=== PATIENT | male | born 1965 | race Caucasian/White ===

== ENCOUNTER 2017-06-08 10:06 | Emergency (ER) | payer SELFPAY ==
[2017-06-08 10:09] VITALS: BP 169/102; PULSE 107; RESP 18; TEMP 98.8; O2SAT 100
--- NOTE | 2017-06-08 10:27 | PD ---
HPI Chief Complaint: Allergic/Adverse Reaction Time Seen by Provider: 10:21 Travel History International Travel<30 days: No Contact w/Intl Traveler<30days: No Traveled to known affect area: No History of Present Illness HPI has had intermittent swelling to lips in past, per patient he just got restarted on lisinopril again, and this morning developed swelling to lips and right cheek. deneis sob/fever/cough/rash.....no alleviating/aggravating factors PFSH Social History Tobacco Use: No Allergies-Medications (Allergen,Severity, Reaction): Coded Allergies: shellfish derived (Verified Allergy, Severe, 06/08/17) Uncoded Allergies: PCN (Allergy, Severe, 06/08/17) Reported Meds & Prescriptions Reported Meds & Active Scripts Active Norvasc (Amlodipine Besylate) 10 Mg Tab 10 Mg PO DAILY Amlodipine (Amlodipine Besylate) 5 Mg Tab 5 Mg PO DAILY Review of Systems Except as stated in HPI: all other systems reviewed are Neg General / Constitutional: No: Fever Eyes: No: Visual changes HENT: Positive: Other (lip swelling) Cardiovascular: No: Chest Pain or Discomfort Respiratory: No: Shortness of Breath Gastrointestinal: No: Abdominal Pain Genitourinary: No: Dysuria Musculoskeletal: No: Pain Skin: No Rash Neurologic: No: Weakness Psychiatric: No: Depression Endocrine: No: Polydipsia Hematologic/Lymphatic: No: Easy Bruising Physical Exam Narrative GENERAL: SKIN: Warm and dry. HEAD: Atraumatic. Normocephalic. EYES: Pupils equal and round. No scleral icterus. No injection or drainage. ENT: No nasal bleeding or discharge. Mucous membranes pink and moist....edema to right sided inferior lip/cheek, no stridor, no wheezing, no rash NECK: Trachea midline. No JVD. CARDIOVASCULAR: Regular rate and rhythm. RESPIRATORY: No accessory muscle use. Clear to auscultation. Breath sounds equal bilaterally. GASTROINTESTINAL: Abdomen soft, non-tender, nondistended. MUSCULOSKELETAL: Extremities without clubbing, cyanosis, or edema. No obvious deformities. NEUROLOGICAL: Awake and alert. No obvious cranial nerve deficits. Motor grossly within normal limits. Five out of 5 muscle strength in the arms and legs. Normal speech. PSYCHIATRIC: Appropriate mood and affect; insight and judgment normal. Data Data Last Documented VS Orders Orders Ecg Monitoring (06/08/17 10:22) Iv Access Insert/Monitor (06/08/17 10:22) Oximetry (06/08/17 10:22) Diphenhydramine Inj (Benadryl Inj) (06/08/17 10:30) Methylprednisolone So Succ Inj (Solumedr (06/08/17 10:30) Sodium Chloride 0.9% Flush (Ns Flush) (06/08/17 10:30) Epinephrine (1:1000) Inj (Adrenalin (1:1 (06/08/17 10:30) Famotidine Inj (Pepcid Inj) (06/08/17 10:45) Sodium Chloride 0.9% Flush (Ns Flush) (06/08/17 10:45) Amlodipine (Norvasc) (06/08/17 12:30) MDM Medical Decision Making Medical Screen Exam Complete: Yes Emergency Medical Condition: Yes Medical Record Reviewed: Yes Differential Diagnosis ALLERGIC RXN V ANGIOEDEMA Narrative Course RECENTLY RESTARTED ON LISINOPRIL AFTER A LONG TIME BEEN OFF, ALONG WITH COREG....WOKE UP WITH SWELLING TO LIPS....which responded well to treatment and has decreased swelling by end of observation...patinet will be d/c home. Diagnosis Primary Impression: angioedema Patient Instructions: Angioedema (ED), General Instructions Additional Instructions: PLEASE STOP TAKING LISINOPRIL AND COREG FOR BLOOD PRESSURE, INSTEAD START TAKING AMLODIPINE (GENERIC FOR NORVASC, FREE AT [facility]) DAILY....ESTABLISH WITH YOUR PRIMARY CARE FOR FURTHER CARE. Scripts Amlodipine (Amlodipine) 5 Mg Tab 5 MG PO DAILY for Blood Pressure Management, #30 TAB 0 Refills Prov: Shawn Maciel MD 06/08/17 Disposition: 01 DISCHARGE HOME Condition: Stable Shawn Maciel MD Jun 08, 2017 10:27
[2017-06-08] MEDS ORDERED: EPINEPHrine HCL (1:1000) 1 MG/ML VIAL IM ONE (10:30)
[2017-06-08] MEDS ORDERED: methylPREDNISolone SOD SUCC 125 MG/2 ML VIAL IV PUSH ONE (10:30)
[2017-06-08] MEDS ORDERED: SODIUM CHLORIDE 0.9% FLUSH 10 ML FLUSH IV FLUSH PRN ×2 (10:30→10:45)
[2017-06-08] MEDS ORDERED: diphenhydrAMINE HCL 50 MG/ML VIAL IVP ONE (10:30)
[2017-06-08] MEDS ORDERED: FAMOTIDINE 20 MG/2 ML VIAL IV PUSH ONE (10:45)
[2017-06-08 10:57] VITALS: PULSE 85; RESP 28; O2SAT 98
[2017-06-08] MEDS ORDERED: AMLO5TAB2 PO (11:29)
[2017-06-08] MEDS ORDERED: FAMO1TAB73 PO (11:36)
[2017-06-08] MEDS ORDERED: MEDR4PAK PO (11:36)
[2017-06-08] MEDS ORDERED: CLAR10CA3 PO (11:36)
[2017-06-08 12:16] VITALS: BP 152/87; PULSE 102; RESP 26; O2SAT 98
[2017-06-08 12:22] VITALS: BP 148/100; PULSE 98
[2017-06-08] MEDS ORDERED: amLODIPine BESYLATE 5 MG TAB PO ONE (12:30)
== END 2017-06-08 12:36 | disposition home or self-care (01) ==
LOC: NEPD 10:06
DX: T78.3XXA Angioneurotic edema, initial encounter (principal); Z91.013 Allergy to seafood
CPT/HCPCS: 96372; 96374; 96375; 99284; J0171; J1200; J2930

== ENCOUNTER 2017-06-12 12:38 | Emergency (ER) | payer SELFPAY ==
[~2017-06-12 12:38] MED LIST: AMLO5TAB2 PO; CLAR10CA3 PO; FAMO1TAB73 PO; MEDR4PAK PO
[2017-06-12 12:52] VITALS: BP 179/119; PULSE 103; RESP 18; TEMP 98.2; O2SAT 98
--- NOTE | 2017-06-12 14:09 | RADRPT ---
EXAM DATE/TIME: 06/12/2017 13:36 [facility] COMPARISON: No previous studies available for comparison. INDICATIONS : Chest pains with shortness of breath. MEDICAL HISTORY : None. SURGICAL HISTORY : None. ENCOUNTER: Initial ACUITY: 2 days PAIN SCORE: 3/10 LOCATION: Bilateral chest FINDINGS: PA and lateral views of the chest demonstrate the lungs to be symmetrically aerated without evidence of mass, infiltrate or effusion. The cardiomediastinal contours are unremarkable. Osseous structure s are intact. CONCLUSION: No acute disease. Malcolm Cason MD FACR on June 12, 2017 at 14:07 Board Certified Radiologist. This report was verified electronically.
[2017-06-12 15:25] LABS: INTERNATIONAL NORMALIZED RATIO 1.1 RATIO; PROTHROMBIN TIME - PATIENT 10.8 SEC (9.8-11.6)
[2017-06-12 15:34] VITALS: BP 170/111; PULSE 83; RESP 20; O2SAT 98
[2017-06-12 15:42] LABS: ALBUMIN 3.8 GM/DL (3.4-5.0); AST (GOT) 116 U/L (15-37); BICARBONATE 31.1 MEQ/L (21.0-32.0); BLOOD UREA NITROGEN 14 MG/DL (7-18); CALCIUM 8.6 MG/DL (8.5-10.1); CHLORIDE 106 MEQ/L (98-107); GLOMERULAR FILTRATION RATE 101 ML/MIN (>89); GLUCOSE,RANDOM 86 MG/DL (74-106); LIPASE 232 U/L (73-393); SODIUM (NA) 141 MEQ/L (136-145)
[2017-06-12 15:50] LABS: ALKALINE PHOSPHATASE 103 U/L (45-117); ALT (GPT) 175 U/L (12-78); TOTAL BILIRUBIN ADULT 0.4 MG/DL (0.2-1.0); TOTAL PROTEIN 8.4 GM/DL (6.4-8.2); TROPONIN I LESS THAN 0.02 NG/ML (0.02-0.05)
[2017-06-12 16:01] LABS: AUTOMATED NEUTROPHIL # 4.8 TH/MM3 (1.8-7.7); BASOPHIL # 0.1 TH/MM3 (0-0.2); BASOPHIL % 0.7 % (0.0-2.0); EOSINOPHIL # 0.3 TH/MM3 (0-0.4); EOSINOPHIL % 3.2 % (0.0-4.0); HEMATOCRIT 48.9 % (39.0-51.0); HEMOGLOBIN 16.6 GM/DL (13.0-17.0); LYMPH % 24.1 % (9.0-44.0); LYMPHOCYTE # 1.9 TH/MM3 (1.0-4.8); MEAN CELL VOLUME 96.8 FL (80.0-100.0); MEAN CORPUSCULAR HEMOGLOBIN 32.9 PG (27.0-34.0); MEAN CORPUSCULAR HGB CONC 33.9 % (32.0-36.0); MEAN PLATELET VOLUME 8.5 FL (7.0-11.0); MONO % 9.9 % (0.0-8.0); MONOCYTE # 0.8 TH/MM3 (0-0.9); NEUT % 62.1 % (16.0-70.0); PLATELET COUNT 231 TH/MM3 (150-450); RED BLOOD COUNT 5.05 MIL/MM3 (4.50-5.90); RED CELL DISTRIBUTION WIDTH 12.6 % (11.6-17.2); WHITE BLOOD COUNT 7.7 TH/MM3 (4.0-11.0)
--- NOTE | 2017-06-12 16:02 | PD ---
HPI Chief Complaint: Chest Pain Time Seen by Provider: 15:51 Travel History International Travel<30 days: No Contact w/Intl Traveler<30days: No Traveled to known affect area: No History of Present Illness HPI PATIENT STATES THAT SINCE CHANGE OF LISINOPRIL HIS SWELLING TO FACE HAS RESOLVED BUT NOW HE HAS NOTICED HIS BP HAS REMAINED ELEVATED IN 180/100 CONSISTENTLY AND EVEN HIGHER IF HE FEELS DIZZY OR WHILE WORKING. PATIENT IS SYMPTOM FREE, BUT STILL NOTICES ELEV BP STILL. PT DENIES BYRD/CP/ABDPAIN/BACKPAIN /.... PFSH Past Medical History Cerebrovascular Accident: Yes (TIA'S) Diminished Hearing: No Hypertension: Yes Influenza Vaccination: No Social History Alcohol Use: Yes (rare) Tobacco Use: No (2 months ago quit) Substance Use: No Allergies-Medications (Allergen,Severity, Reaction): Coded Allergies: shellfish derived (Verified Allergy, Severe, 06/08/17) Uncoded Allergies: PCN (Allergy, Severe, 06/08/17) Reported Meds & Prescriptions Reported Meds & Active Scripts Active Amlodipine (Amlodipine Besylate) 5 Mg Tab 5 Mg PO DAILY Review of Systems Except as stated in HPI: all other systems reviewed are Neg General / Constitutional: No: Fever Eyes: No: Visual changes HENT: No: Headaches Cardiovascular: No: Chest Pain or Discomfort Respiratory: No: Shortness of Breath Gastrointestinal: No: Abdominal Pain Genitourinary: No: Dysuria Musculoskeletal: No: Pain Skin: No Rash Neurologic: No: Weakness Psychiatric: No: Depression Endocrine: No: Polydipsia Hematologic/Lymphatic: No: Easy Bruising Physical Exam Narrative GENERAL: SKIN: Warm and dry. HEAD: Atraumatic. Normocephalic. EYES: Pupils equal and round. No scleral icterus. No injection or drainage. ENT: No nasal bleeding or discharge. Mucous membranes pink and moist. NECK: Trachea midline. No JVD. CARDIOVASCULAR: Regular rate and rhythm. RESPIRATORY: No accessory muscle use. Clear to auscultation. Breath sounds equal bilaterally. GASTROINTESTINAL: Abdomen soft, non-tender, nondistended. MUSCULOSKELETAL: Extremities without clubbing, cyanosis, or edema. No obvious deformities. NEUROLOGICAL: Awake and alert. No obvious cranial nerve deficits. Motor grossly within normal limits. Five out of 5 muscle strength in the arms and legs. Normal speech. PSYCHIATRIC: Appropriate mood and affect; insight and judgment normal. Data Data Last Documented VS Vital Signs Date Time Temp Pulse Resp B/P (MAP) Pulse Ox O2 Delivery O2 Flow Rate FiO2 06/12/17 16:44 160/104 (122) 06/12/17 15:34 83 20 98 Room Air 06/12/17 12:52 98.2 Orders Orders Electrocardiogram (06/12/17 13:03) Ckmb (Isoenzyme) Profile (06/12/17 13:03) Complete Blood Count With Diff (06/12/17 13:03) Comprehensive Metabolic Panel (06/12/17 13:03) Magnesium (Mg) (06/12/17 13:03) Prothrombin Time / Inr (Pt) (06/12/17 13:03) Act Partial Throm Time (Ptt) (06/12/17 13:03) Troponin I (06/12/17 13:03) Lipase (06/12/17 13:03) Chest, Pa & Lat (06/12/17 13:03) CKMB (06/12/17 14:42) CKMB% (06/12/17 14:42) Amlodipine (Norvasc) (06/12/17 16:00) Labs Laboratory Tests Test 06/12/17 14:42 White Blood Count 7.7 TH/MM3 Red Blood Count 5.05 MIL/MM3 Hemoglobin 16.6 GM/DL Hematocrit 48.9 % Mean Corpuscular Volume 96.8 FL Mean Corpuscular Hemoglobin 32.9 PG Mean Corpuscular Hemoglobin Concent 33.9 % Red Cell Distribution Width 12.6 % Platelet Count 231 TH/MM3 Mean Platelet Volume 8.5 FL Neutrophils (%) (Auto) 62.1 % Lymphocytes (%) (Auto) 24.1 % Monocytes (%) (Auto) 9.9 % Eosinophils (%) (Auto) 3.2 % Basophils (%) (Auto) 0.7 % Neutrophils # (Auto) 4.8 TH/MM3 Lymphocytes # (Auto) 1.9 TH/MM3 Monocytes # (Auto) 0.8 TH/MM3 Eosinophils # (Auto) 0.3 TH/MM3 Basophils # (Auto) 0.1 TH/MM3 CBC Comment DIFF FINAL Differential Comment Prothrombin Time 10.8 SEC Prothromb Time International Ratio 1.1 RATIO Activated Partial Thromboplast Time 23.6 SEC Blood Urea Nitrogen 14 MG/DL Creatinine 0.80 MG/DL Random Glucose 86 MG/DL Total Protein 8.4 GM/DL Albumin 3.8 GM/DL Calcium Level 8.6 MG/DL Magnesium Level 2.0 MG/DL Alkaline Phosphatase 103 U/L Aspartate Amino Transf (AST/SGOT) 116 U/L Alanine Aminotransferase (ALT/SGPT) 175 U/L Total Bilirubin 0.4 MG/DL Sodium Level 141 MEQ/L Potassium Level 4.1 MEQ/L Chloride Level 106 MEQ/L Carbon Dioxide Level 31.1 MEQ/L Anion Gap 4 MEQ/L Estimat Glomerular Filtration Rate 101 ML/MIN Total Creatine Kinase 128 U/L Creatine Kinase MB 0.9 NG/ML Troponin I LESS THAN 0.02 NG/ML Lipase 232 U/L [facility] Medical Decision Making Medical Screen Exam Complete: Yes Emergency Medical Condition: Yes Medical Record Reviewed: Yes Differential Diagnosis HTN UNCONTROLLED V ATYPICAL STEMI V DIZZY V ELECTROLYTE ABNL V ANEMIA Narrative Course PATIENT WAS JUST STARTED ON NORVASC, AND WAS STARTED ON LOW DOSE Diagnosis Primary Impression: UNCNTROLLED HYPERTENSION Referrals: [facility] FOR FURTHER BLOOD PRESSURE CONTROL Patient Instructions: General Instructions, Hypertension (ED) Scripts Amlodipine (Norvasc) 10 Mg Tab 10 MG PO DAILY for Blood Pressure Management, #30 TAB 0 Refills Prov: Shawn Maciel MD 06/12/17 Disposition: 01 DISCHARGE HOME Condition: Stable Shawn Maciel MD Jun 12, 2017 16:02
[2017-06-12 16:44] VITALS: BP 160/104
[2017-06-12] MEDS ORDERED: AMLO10 PO (16:47)
--- NOTE | 2017-06-13 14:02 | EKG ---
Date Performed: 06/12/2017 Time Performed: 14:41:30 PTAGE: 52 years EKG: Sinus rhythm NORMAL ECG NO PREVIOUS TRACING DOCTOR: Dashawn Serrato Interpretating Date/Time 06/13/2017 14:00:36
== END 2017-06-12 17:38 | disposition home or self-care (01) ==
LOC: NEPD 12:38
DX: I10 Essential (primary) hypertension (principal); Z86.73 Personal history of transient ischemic attack (TIA), and cerebral infarction without residual deficits; Z79.899 Other long term (current) drug therapy
CPT/HCPCS: 71046; 80053; 82550; 82552; 83690; 83735; 84484; 85025; 85610; 85730; 93005

== ENCOUNTER 2017-07-22 09:08 | Emergency (ER) | payer SELFPAY ==
[~2017-07-22] VITALS: Ht 188 cm; Wt 95.0 kg
[~2017-07-22 09:08] MED LIST changes: +AMLO10 PO; -CLAR10CA3 PO; -FAMO1TAB73 PO; -MEDR4PAK PO
[2017-07-22 09:10] VITALS: BP 176/104; PULSE 117; RESP 14; TEMP 98.2; O2SAT 98
[2017-07-22 09:50] VITALS: BP 147/104; PULSE 87; RESP 18; O2SAT 98
--- NOTE | 2017-07-22 09:50 | PD ---
HPI Chief Complaint: Allergic/Adverse Reaction Time Seen by Provider: 09:42 Travel History International Travel<30 days: No Contact w/Intl Traveler<30days: No Traveled to known affect area: No History of Present Illness HPI 52-year-old male with history of hypertension, presents the emergency Department with report of "swelling of this time and throat" after taking his clonidine this morning. Patient states he's had trouble in the past with multiple blood pressure medications including lisinopril, Coreg, and now clonidine. He was on amlodipine 10 mg daily until 2 weeks ago, but he stopped that after developing lower extremity edema. He is on his own without speaking to his primary care physician. Patient states his blood pressure is elevated, and he has chest tightness. He denies wheezing or shortness of breath. Patient also has allergies to penicillin and shellfish. PFSH Past Medical History Cardiovascular Problems: Yes (HTN) Cerebrovascular Accident: Yes (TIA'S) Diminished Hearing: No Hypertension: Yes Social History Alcohol Use: Yes (rare) Tobacco Use: No (2 months ago quit) Substance Use: No Allergies-Medications (Allergen,Severity, Reaction): Coded Allergies: shellfish derived (Verified Allergy, Severe, 06/08/17) lisinopril (Verified Adverse Reaction, Severe, ANGIOEDEMA, 07/22/17) Uncoded Allergies: PCN (Allergy, Severe, 06/08/17) Reported Meds & Prescriptions Reported Meds & Active Scripts Active Norvasc (Amlodipine Besylate) 10 Mg Tab 10 Mg PO DAILY Amlodipine (Amlodipine Besylate) 5 Mg Tab 5 Mg PO DAILY Review of Systems Except as stated in HPI: all other systems reviewed are Neg General / Constitutional: No: Fever Eyes: No: Visual changes HENT: Positive: Other, No: Headaches, Vertigo, Lightheadedness, Sore Throat, Rhinitis, Rhinorrhea, Congestion, Nosebleed, Neck Stiffness, Neck Pain (see history of present illness), Dental Difficulties, Earache Cardiovascular: No: Chest Pain or Discomfort Respiratory: No: Shortness of Breath Gastrointestinal: No: Abdominal Pain Genitourinary: No: Dysuria Musculoskeletal: No: Pain Skin: No Rash Neurologic: No: Weakness Psychiatric: No: Depression Endocrine: No: Polydipsia Hematologic/Lymphatic: No: Easy Bruising Physical Exam Narrative GENERAL: Patient appears in no obvious distress. He is mildly anxious. It is noted that his speech pattern changes depending on what you're talking about. He has a less than that he doesn't. SKIN: Warm and dry. Normal color. Normal turgor. No rash. HEAD: Atraumatic. Normocephalic. EYES: Pupils equal and round. No scleral icterus. No injection or drainage. ENT: No nasal bleeding or discharge. Mucous membranes pink and moist. TMs are clear bilaterally. Tongue does not appear significantly swollen. Lips appear normal. Pharynx is clear. Airway is patent. NECK: Trachea midline. Supple nontender. CARDIOVASCULAR: Regular rate and rhythm. No murmurs gallops or rubs appreciated. RESPIRATORY: No accessory muscle use. Clear to auscultation. Breath sounds equal bilaterally. GASTROINTESTINAL: Abdomen soft, non-tender, nondistended. Hepatic and splenic margins not palpable. MUSCULOSKELETAL: Extremities without clubbing, cyanosis, or edema. No obvious deformities. NEUROLOGICAL: Awake and alert. No obvious cranial nerve deficits. Motor grossly within normal limits. Five out of 5 muscle strength in the arms and legs. Normal speech. PSYCHIATRIC: Appropriate mood and affect; insight and judgment normal. Data Data Last Documented VS Vital Signs Date Time Temp Pulse Resp B/P (MAP) Pulse Ox O2 Delivery O2 Flow Rate FiO2 07/22/17 10:10 88 20 142/89 (106) 98 Room Air 07/22/17 09:10 98.2 Orders Orders Electrocardiogram (07/22/17 09:48) Basic Metabolic Panel (Bmp) (07/22/17 09:48) Ckmb (Isoenzyme) Profile (07/22/17 09:48) Complete Blood Count With Diff (07/22/17:48) Magnesium (Mg) (07/22/17 09:48) Prothrombin Time / Inr (Pt) (07/22/17 09:48) Act Partial Throm Time (Ptt) (07/22/17 09:48) Troponin I (07/22/17 09:48) Chest, Single Ap (07/22/17 09:48) Ecg Monitoring (07/22/17 09:48) Iv Access Insert/Monitor (07/22/17 09:48) Oximetry (07/22/17 09:48) Sodium Chloride 0.9% Flush (Ns Flush) (07/22/17 10:00) Sodium Chlorid 0.9% 500 Ml Inj (Ns 500 M (07/22/17 10:00) Hydralazine Inj (Apresoline Inj) (07/22/17 10:00) Diphenhydramine Inj (Benadryl Inj) (07/22/17 10:00) [facility] Medical Decision Making Medical Screen Exam Complete: Yes Emergency Medical Condition: Yes Medical Record Reviewed: Yes Differential Diagnosis Possible medication reaction. Essential hypertension. Anxiety. Narrative Course Patient is stable at time of exam. Labs ordered including CBC, CMP, cardiac panel. Chest x-ray is ordered as well as EKG. IV access is obtained patient is given 10 mg hydralazine IV, as well as 25 mg diphenhydramine IV. Patient is given 500 mL normal saline bolus. EKG shows normal sinus rhythm without any significant changes noted. Chest x-ray is negative for acute process per radiologist. Labs Patient is reassessed and his blood pressure improved to 143/89. Patient feels improved. Swelling is resolved. Patient will be discharged home on hydralazine 100 mg twice a day #60. Patient also started on hydrocodone thiazide 12.5 mg daily #30. Patient has clonidine which he can use intermittently as needed for high blood pressure spikes. Recommended no more amlodipine due to the edema it causes. Patient needs follow-up with local primary care physician which he states he is working on with insurance. Patient can return with any worsening symptoms as needed. Diagnosis Primary Impression: Adverse effects of medication Qualified Codes: T88.7XXA - Unspecified adverse effect of drug or medicament, initial encounter Additional Impression: Hypertension Qualified Codes: I10 - Essential (primary) hypertension Referrals: Primary Care Physician Patient Instructions: 2 Gram Sodium Diet (DC), General Instructions Additional Instructions: Patient is reassessed and his blood pressure improved to 143/89. Patient feels improved. Swelling is resolved. Patient will be discharged home on hydralazine 100 mg twice a day #60. Patient also started on hydrocodone thiazide 12.5 mg daily #30. Patient has clonidine which he can use intermittently as needed for high blood pressure spikes. Recommended no more amlodipine due to the edema it causes. Patient needs follow-up with local primary care physician which he states he is working on with insurance. Patient can return with any worsening symptoms as needed. Med/Other Pt SpecificInfo: Prescription(s) given Scripts Hydrochlorothiazide (Hydrochlorothiazide) 12.5 Mg Tab 12.5 MG PO DAILY, #30 TAB 0 Refills Prov: Alden Tang MD 07/22/17 Hydralazine (Hydralazine) 100 Mg Tab 100 MG PO BID for Blood Pressure Management for 30 Days, #60 TAB 0 Refills Take with meals Prov: Alden Tang MD 07/22/17 Disposition: 01 DISCHARGE HOME Condition: Stable Garrett Farrell Jul 22, 2017 09:50
[2017-07-22] MEDS ORDERED: SODIUM CHLORIDE 0.9% FLUSH 10 ML FLUSH IVF PRN (10:00)
[2017-07-22] MEDS ORDERED: hydrALAZINE HCL 20 MG/ML VIAL IV PUSH ONE (10:00)
[2017-07-22] MEDS ORDERED: SODIUM CHLORID 0.9% 500 ML INJ 500 ML IV ONE (10:00)
[2017-07-22] MEDS ORDERED: diphenhydrAMINE HCL 50 MG/ML VIAL IV PUSH ONE (10:00)
[2017-07-22 10:10] VITALS: BP 142/89; PULSE 88; RESP 20; O2SAT 98
--- NOTE | 2017-07-22 10:44 | RADRPT ---
EXAM DATE/TIME: 07/22/2017 10:13 [facility] COMPARISON: CHEST PA & LAT, June 12, 2017, 13:36. INDICATIONS : Chest tightness and shortness of breath for one day. MEDICAL HISTORY : Former smoker. SURGICAL HISTORY : None. ENCOUNTER: Initial ACUITY: 1 day PAIN SCORE: 0/10 LOCATION: Bilateral chest FINDINGS: A single view of the chest demonstrates the lungs to be symmetrically aerated without evidence of mas s, infiltrate or effusion. The cardiomediastinal contours are unremarkable. Osseous structures are intact. CONCLUSION: No acute disease. No significant change has occurred. Jonnathan Granda MD on July 22, 2017 at 10:42 Board Certified Radiologist. This report was verified electronically.
[2017-07-22] MEDS ORDERED: HYDR12.56 PO (10:55)
[2017-07-22] MEDS ORDERED: HYDR-3801 PO (10:55)
[2017-07-22 11:07] LABS: AUTOMATED NEUTROPHIL # 5.7 TH/MM3 (1.8-7.7); BASOPHIL # 0.1 TH/MM3 (0-0.2); BASOPHIL % 0.7 % (0.0-2.0); EOSINOPHIL # 0.2 TH/MM3 (0-0.4); EOSINOPHIL % 3.1 % (0.0-4.0); HEMATOCRIT 48.6 % (39.0-51.0); HEMOGLOBIN 17.1 GM/DL (13.0-17.0); LYMPHOCYTE # 1.3 TH/MM3 (1.0-4.8); MEAN CELL VOLUME 95.3 FL (80.0-100.0); MEAN CORPUSCULAR HEMOGLOBIN 33.4 PG (27.0-34.0); MEAN CORPUSCULAR HGB CONC 35.1 % (32.0-36.0); MEAN PLATELET VOLUME 8.4 FL (7.0-11.0); MONO % 8.7 % (0.0-8.0); MONOCYTE # 0.7 TH/MM3 (0-0.9); NEUT % 71.5 % (16.0-70.0); PLATELET COUNT 222 TH/MM3 (150-450); RED CELL DISTRIBUTION WIDTH 12.7 % (11.6-17.2); WHITE BLOOD COUNT 7.9 TH/MM3 (4.0-11.0)
[2017-07-22 11:16] LABS: INTERNATIONAL NORMALIZED RATIO 1.1 RATIO; PROTHROMBIN TIME - PATIENT 11.1 SEC (9.8-11.6)
[2017-07-22 11:55] LABS: BICARBONATE 27.1 MEQ/L (21.0-32.0); BLOOD UREA NITROGEN 14 MG/DL (7-18); CALCIUM 9.1 MG/DL (8.5-10.1); CHLORIDE 102 MEQ/L (98-107); CREATININE 0.83 MG/DL (0.60-1.30); GLOMERULAR FILTRATION RATE 97 ML/MIN (>89); GLUCOSE,RANDOM 108 MG/DL (74-106); MAGNESIUM 2.1 MG/DL (1.5-2.5); SODIUM (NA) 135 MEQ/L (136-145); TROPONIN I LESS THAN 0.02 NG/ML (0.02-0.05)
[2017-07-22 12:05] VITALS: BP 164/68
--- NOTE | 2017-07-22 14:28 | EKG ---
Date Performed: 07/22/2017 Time Performed: 10:20:10 PTAGE: 52 years EKG: Sinus rhythm NORMAL ECG Since PREVIOUS TRACING , no significant change noted PREVIOUS TRACIN06/12/2017 14.41 DOCTOR: Suman Jean Baptiste Interpretating Date/Time 07/22/2017 14:26:39
[2017-07-23] MEDS ORDERED: CLON0.1T PO (16:18)
[2017-07-23] MEDS ORDERED: DIPH25CA PO (16:37)
[2017-07-23] MEDS ORDERED: LORA-392 PO (18:01)
[2017-07-23] MEDS ORDERED: HYDR25TA5 PO (18:01)
== END 2017-07-22 12:20 | disposition home or self-care (01) ==
LOC: NEPD 09:08
DX: R22.1 Localized swelling, mass and lump, neck (principal); R07.89 Other chest pain; T50.905A Adverse effect of unspecified drugs, medicaments and biological substances, initial encounter; I10 Essential (primary) hypertension; Z86.73 Personal history of transient ischemic attack (TIA), and cerebral infarction without residual deficits; Z87.891 Personal history of nicotine dependence
CPT/HCPCS: 71045; 80048; 82550; 83735; 84484; 85025; 85610; 85730; 93005; 96361; 96374; 96375; 99285; J0360; J1200; J7040

== ENCOUNTER 2017-07-23 15:57 | Emergency (ER) | payer SELFPAY ==
[~2017-07-23] VITALS: Ht 188 cm; Wt 93.0 kg
[~2017-07-23 15:57] MED LIST changes: +HYDR-3801 PO; +HYDR12.56 PO
[2017-07-23 16:01] VITALS: BP 167/103; PULSE 125; RESP 20; TEMP 97.8; O2SAT 98
[2017-07-23] MEDS ORDERED: SODIUM CHLOR 0.9% 1000 ML INJ 1,000 ML IV SCH (16:16)
[2017-07-23 16:18] VITALS: BP 152/98; PULSE 100; PULSE 104; RESP 20; O2SAT 98
[2017-07-23] MEDS ORDERED: CLON0.1T PO (16:18)
[2017-07-23] MEDS ORDERED: SODIUM CHLORIDE 0.9% FLUSH 10 ML FLUSH IV FLUSH PRN (16:30)
[2017-07-23] MEDS ORDERED: diphenhydrAMINE HCL 50 MG/ML VIAL IVP ONE (16:30)
[2017-07-23] MEDS ORDERED: FAMOTIDINE 20 MG/2 ML VIAL IV PUSH ONE (16:30)
[2017-07-23] MEDS ORDERED: methylPREDNISolone SOD SUCC 125 MG/2 ML VIAL IV PUSH ONE (16:30)
[2017-07-23] MEDS ORDERED: DIPH25CA PO (16:37)
--- NOTE | 2017-07-23 16:39 | PD ---
HPI Chief Complaint: Chest Pain Time Seen by Provider: 16:05 Travel History International Travel<30 days: No Contact w/Intl Traveler<30days: No Traveled to known affect area: No History of Present Illness HPI 52-year-old male arrives complaining of allergies to antihypertensives. He was seen here yesterday with what he believes to have been anaphylaxis and her angioedema in response to blood pressure medications he does not know the name of the blood pressure medications. He states he was seen here in his throat felt full at the time and never really decreased to his normal size. He felt some chest pain earlier today. He felt paresthesias earlier today and arrives here with complaints as offered. Time resolved. Severity moderate. PFSH Past Medical History Arthritis: Yes Cardiovascular Problems: Yes (HTN) Cerebrovascular Accident: Yes (2014) Diminished Hearing: No Hypertension: Yes Influenza Vaccination: No Past Surgical History Oral Surgery: Yes Thoracic Surgery: Yes Social History Alcohol Use: Yes (rare) Tobacco Use: No Substance Use: No Allergies-Medications (Allergen,Severity, Reaction): Coded Allergies: shellfish derived (Verified Allergy, Severe, 07/23/17) Penicillins (Verified Allergy, Unknown, 07/23/17) lisinopril (Verified Adverse Reaction, Severe, ANGIOEDEMA, 07/23/17) Uncoded Allergies: PCN (Allergy, Severe, 06/08/17) Reported Meds & Prescriptions Reported Meds & Active Scripts Active Diphenhydramine (Diphenhydramine HCl) 25 Mg Cap 25 Mg PO Q12H PRN Hydrochlorothiazide 12.5 Mg Tab 12.5 Mg PO DAILY Hydralazine (Hydralazine HCl) 100 Mg Tab 100 Mg PO BID 30 Days Take with meals Norvasc (Amlodipine Besylate) 10 Mg Tab 10 Mg PO DAILY Amlodipine (Amlodipine Besylate) 5 Mg Tab 5 Mg PO DAILY Reported Clonidine (Clonidine HCl) 0.1 Mg Tab 0.1 Mg PO BID Review of Systems Except as stated in HPI: all other systems reviewed are Neg General / Constitutional: No: Fever Physical Exam Narrative GENERAL: 52-year-old male well-nourished well-developed mildly anxious, watching TV Vital Signs Date Time Temp Pulse Resp B/P (MAP) Pulse Ox O2 Delivery O2 Flow Rate FiO2 07/23/17 16:18 100 20 152/98 (116) 98 Room Air 07/23/17 16:18 104 20 152/98 (116) 98 Room Air 07/23/17 16:08 20 Room Air 07/23/17 16:01 97.8 125 20 167/103 (124) 98 SKIN: Warm and dry. HEAD: Atraumatic. Normocephalic. EYES: Pupils equal and round. No scleral icterus. No injection or drainage. ENT: No nasal bleeding or discharge. Mucous membranes pink and moist. Posterior oropharynx is widely patent. NECK: Trachea midline. No JVD. CARDIOVASCULAR: Tachycardia. Regular rhythm. RESPIRATORY: The lungs are clear. No tachypnea. GASTROINTESTINAL: Abdomen soft, non-tender, nondistended. Hepatic and splenic margins not palpable. MUSCULOSKELETAL: Extremities without clubbing, cyanosis, or edema. No obvious deformities. NEUROLOGICAL: Awake and alert. No obvious cranial nerve deficits. Motor grossly within normal limits. Five out of 5 muscle strength in the arms and legs. Normal speech. PSYCHIATRIC: Appropriate mood and affect; insight and judgment normal. Data Data Last Documented VS Vital Signs Date Time Temp Pulse Resp B/P (MAP) Pulse Ox O2 Delivery O2 Flow Rate FiO2 07/23/17 16:18 100 20 152/98 (116) 98 Room Air 07/23/17 16:01 97.8 Orders Orders Electrocardiogram (07/23/17 ) Ecg Monitoring (07/23/17 16:16) Iv Access Insert/Monitor (07/23/17 16:16) Oximetry (07/23/17 16:16) Diphenhydramine Inj (Benadryl Inj) (07/23/17 16:30) Methylprednisolone So Succ Inj (Solumedr (07/23/17 16:30) Famotidine Inj (Pepcid Inj) (07/23/17 16:30) Sodium Chlor 0.9% 1000 Ml Inj (Ns 1000 M (07/23/17 16:16) Sodium Chloride 0.9% Flush (Ns Flush) (07/23/17 16:30) Lorazepam Inj (Ativan Inj) (07/23/17 17:00) [facility]DM Medical Decision Making Medical Screen Exam Complete: Yes Emergency Medical Condition: Yes Medical Record Reviewed: Yes Differential Diagnosis NSTEMI, unstable angina, coronary vasospasm, PE, PTX, aortic dissection, pericarditis, myocarditis, endocarditis, PNA, esophageal disease, aneurysm, musculoskeletal etiologies, anxiety, cocaine/sympathomimetic abuse Narrative Course Time of reassessment, 545 spent 15 minutes talking over the patient's allergies and blood pressure medications. Turns out he is suffering with severe anxiety due to the divorce after 20 years of marriage and his son, a electrical sign servicer in [place] suffering life-threatening injury. We talked about anxiety management interventions for home as well as other blood pressure interventions and the use of Ativan with great caution. Return precautions discussed with the patient states he is going to see primary provider soon Diagnosis Primary Impression: Adverse reaction to drug Qualified Codes: T88.7XXD - Unspecified adverse effect of drug or medicament, subsequent encounter Additional Impressions: Anxiety Insomnia Qualified Codes: G47.00 - Insomnia, unspecified Referrals: Primary Care Physician 2 days Med/Other Pt SpecificInfo: Prescription(s) given Scripts Hydrochlorothiazide (Hydrochlorothiazide) 25 Mg Tab 25 MG PO HS, #30 TAB 0 Refills Prov: Fernando Pena MD 07/23/17 Lorazepam (Ativan) 0.5 Mg Tab 0.5 MG PO HS Y for INSOMNIA, #20 TAB 0 Refills Prov: Fernando Pena MD 07/23/17 Diphenhydramine (Diphenhydramine) 25 Mg Cap 25 MG PO Q12H Y for ALLERGIES, #10 CAP 0 Refills Prov: Fernando Pena MD 07/23/17 Disposition: 01 DISCHARGE HOME Condition: Stable Fernando Pena MD Jul 23, 2017 16:39
[2017-07-23] MEDS ORDERED: LORazepam 2 MG/ML VIAL IV PUSH ONE (17:00)
[2017-07-23] MEDS ORDERED: LORA-392 PO (18:01)
[2017-07-23] MEDS ORDERED: HYDR25TA5 PO (18:01)
[2017-07-23 18:30] VITALS: BP 175/97
--- NOTE | 2017-07-24 23:06 | EKG ---
Date Performed: 07/23/2017 Time Performed: 16:09:27 PTAGE: 52 years EKG: SINUS TACHYCARDIA ABNORMAL RHYTHM ECG NO PREVIOUS TRACING DOCTOR: Gris Rangel Interpretating Date/Time 07/24/2017 22:57:28
== END 2017-07-23 18:20 | disposition home or self-care (01) ==
LOC: NEPC 15:57
DX: F41.9 Anxiety disorder, unspecified (principal); G47.00 Insomnia, unspecified; I10 Essential (primary) hypertension
CPT/HCPCS: 93005; 96361; 96374; 96375; 99284; J1200; J2060; J2930; J7030

== ENCOUNTER 2017-07-26 12:32 | Observation (INO) | payer SELFPAY ==
[~2017-07-26 12:32] MED LIST changes: +CLON0.1T PO; +DIPH25CA PO; +HYDR25TA5 PO; +LORA-392 PO
[2017-07-26 12:48] VITALS: BP 158/70; PULSE 70; RESP 18; TEMP 98.9; O2SAT 99
[2017-07-26 13:07] LABS: BASOPHIL # 0.1 TH/MM3 (0-0.2); BASOPHIL % 0.7 % (0.0-2.0); EOSINOPHIL # 0.2 TH/MM3 (0-0.4); EOSINOPHIL % 1.8 % (0.0-4.0); HEMATOCRIT 46.9 % (39.0-51.0); HEMOGLOBIN 16.4 GM/DL (13.0-17.0); LYMPH % 18.8 % (9.0-44.0); LYMPHOCYTE # 1.8 TH/MM3 (1.0-4.8); MEAN CELL VOLUME 96.9 FL (80.0-100.0); MEAN CORPUSCULAR HEMOGLOBIN 33.8 PG (27.0-34.0); MEAN CORPUSCULAR HGB CONC 34.9 % (32.0-36.0); MONO % 14.6 % (0.0-8.0); MONOCYTE # 1.4 TH/MM3 (0-0.9); NEUT % 64.1 % (16.0-70.0); PLATELET COUNT 223 TH/MM3 (150-450); RED BLOOD COUNT 4.84 MIL/MM3 (4.50-5.90); RED CELL DISTRIBUTION WIDTH 12.9 % (11.6-17.2); WHITE BLOOD COUNT 9.3 TH/MM3 (4.0-11.0)
[2017-07-26 13:26] LABS: ALKALINE PHOSPHATASE 89 U/L (45-117); TOTAL BILIRUBIN ADULT 0.6 MG/DL (0.2-1.0); TOTAL PROTEIN 7.8 GM/DL (6.4-8.2)
[2017-07-26 13:28] LABS: ALBUMIN 3.3 GM/DL (3.4-5.0); ALT (GPT) 124 U/L (12-78); AST (GOT) 98 U/L (15-37); BICARBONATE 24.2 MEQ/L (21.0-32.0); BLOOD UREA NITROGEN 12 MG/DL (7-18); CALCIUM 8.6 MG/DL (8.5-10.1); CHLORIDE 103 MEQ/L (98-107); CREATININE 0.79 MG/DL (0.60-1.30); GLOMERULAR FILTRATION RATE 102 ML/MIN (>89); GLUCOSE,RANDOM 95 MG/DL (74-106); SODIUM (NA) 135 MEQ/L (136-145)
[2017-07-26] MEDS ORDERED: MORPHINE SULFATE 2 MG/ML INJ IV PUSH ONE (13:45)
[2017-07-26] MEDS ORDERED: ONDANSETRON HCL 4 MG/2 ML VIAL IV PUSH ONE (13:45)
--- NOTE | 2017-07-26 13:48 | PD ---
HPI Chief Complaint: General Weakness Time Seen by Provider: 13:26 Travel History International Travel<30 days: No Contact w/Intl Traveler<30days: No Traveled to known affect area: No History of Present Illness HPI 52-year-old male that presents to the ED for evaluation of weakness as well as headache and chest pressure. Per patient his been here multiple times for blood pressure issues. Per patient his blood pressure has been okay and has had no issues until today when he woke up he started having a headache to his left side of his head as well as tremors and pain to his left neck. Per patient he has a history of stroke in the past. He denies any numbness, tingling, weakness but states having weakness sensation throughout the entire body. Per patient she feels nauseous. He states having some chest pressure that he's never had before. Denies any heart history. He states that his been battling with hypertension for some time. He has not been able to follow with a primary care doctor. He has been here 4 times in the past for blood pressure related events and last time he was found to be more anxious than having blood pressure issues. His blood pressure medication has been changed at least 3 times here in the ED secondary to possible allergic reactions to the medications. He states compliant with his medications here. pain per patients is mostly to the head and is pressure like 7/10. PFSH Past Medical History Arthritis: Yes Cardiovascular Problems: Yes (HTN) Cerebrovascular Accident: Yes (2014) Diminished Hearing: No Hypertension: Yes ?: Not Past Surgical History Oral Surgery: Yes Thoracic Surgery: Yes Social History Alcohol Use: Yes (rare) Tobacco Use: No Substance Use: No Allergies-Medications (Allergen,Severity, Reaction): Coded Allergies: shellfish derived (Verified Allergy, Severe, 07/26/17) Penicillins (Verified Allergy, Unknown, 07/26/17) lisinopril (Verified Adverse Reaction, Severe, ANGIOEDEMA, 07/26/17) Uncoded Allergies: PCN (Allergy, Severe, 06/08/17) Reported Meds & Prescriptions Reported Meds & Active Scripts Active Ativan (Lorazepam) 0.5 Mg Tab 0.5 Mg PO HS PRN Reported Hydralazine (Hydralazine HCl) 100 Mg Tab 100 Mg PO BID Take with meals Review of Systems Except as stated in HPI: all other systems reviewed are Neg Physical Exam Narrative GENERAL: SKIN: Warm and dry. HEAD: Atraumatic. Normocephalic. EYES: Pupils equal and round. No scleral icterus. No injection or drainage. ENT: No nasal bleeding or discharge. Mucous membranes pink and moist. Tongue is midline. No uvula deviation. NECK: Trachea midline. No JVD. CARDIOVASCULAR: Regular rate and rhythm. No murmurs, S3, S4. RESPIRATORY: No accessory muscle use. Clear to auscultation. Breath sounds equal bilaterally. GASTROINTESTINAL: Abdomen soft, non-tender, nondistended. Hepatic and splenic margins not palpable. MUSCULOSKELETAL: Extremities without clubbing, cyanosis, or edema. No obvious deformities. Full range of motion of the upper and lower extremities bilaterally. 2+ pulses bilaterally. NEUROLOGICAL: Awake and alert. No obvious cranial nerve deficits. Motor grossly within normal limits. Five out of 5 muscle strength in the arms and legs. Normal speech. PSYCHIATRIC: Appropriate mood and affect; insight and judgment normal. Data Data Last Documented VS Vital Signs Date Time Temp Pulse Resp B/P (MAP) Pulse Ox O2 Delivery O2 Flow Rate FiO2 07/26/17 12:48 98.9 70 18 158/70 (99) 99 Orders Orders Complete Blood Count With Diff (07/26/17 12:47) Comprehensive Metabolic Panel (07/26/17 12:47) Urinalysis - C+S If Indicated (07/26/17 12:47) Electrocardiogram (07/26/17 13:41) Ckmb (Isoenzyme) Profile (07/26/17 13:41) Troponin I (07/26/17 13:41) Prothrombin Time / Inr (Pt) (07/26/17 13:41) Act Partial Throm Time (Ptt) (07/26/17 13:41) Magnesium (Mg) (07/26/17 13:41) Chest, Single Ap (07/26/17 13:41) Ct Brain W/O Iv Contrast(Rout) (07/26/17 13:41) Ct Cerv Spine W/O Contrast (07/26/17 ) Morphine Inj (Morphine Inj) (07/26/17 13:45) Ondansetron Inj (Zofran Inj) (07/26/17 13:45) Aspirin (Aspirin) (07/26/17 14:00) Labs Laboratory Tests Test 07/26/17 12:48 White Blood Count 9.3 TH/MM3 Red Blood Count 4.84 MIL/MM3 Hemoglobin 16.4 GM/DL Hematocrit 46.9 % Mean Corpuscular Volume 96.9 FL Mean Corpuscular Hemoglobin 33.8 PG Mean Corpuscular Hemoglobin Concent 34.9 % Red Cell Distribution Width 12.9 % Platelet Count 223 TH/MM3 Mean Platelet Volume 8.0 FL Neutrophils (%) (Auto) 64.1 % Lymphocytes (%) (Auto) 18.8 % Monocytes (%) (Auto) 14.6 % Eosinophils (%) (Auto) 1.8 % Basophils (%) (Auto) 0.7 % Neutrophils # (Auto) 6.0 TH/MM3 Lymphocytes # (Auto) 1.8 TH/MM3 Monocytes # (Auto) 1.4 TH/MM3 Eosinophils # (Auto) 0.2 TH/MM3 Basophils # (Auto) 0.1 TH/MM3 CBC Comment DIFF FINAL Differential Comment Blood Urea Nitrogen 12 MG/DL Creatinine 0.79 MG/DL Random Glucose 95 MG/DL Total Protein 7.8 GM/DL Albumin 3.3 GM/DL Calcium Level 8.6 MG/DL Alkaline Phosphatase 89 U/L Aspartate Amino Transf (AST/SGOT) 98 U/L Alanine Aminotransferase (ALT/SGPT) 124 U/L Total Bilirubin 0.6 MG/DL Sodium Level 135 MEQ/L Potassium Level 3.9 MEQ/L Chloride Level 103 MEQ/L Carbon Dioxide Level 24.2 MEQ/L Anion Gap 8 MEQ/L Estimat Glomerular Filtration Rate 102 ML/MIN MDM Medical Decision Making Medical Screen Exam Complete: Yes Emergency Medical Condition: Yes Medical Record Reviewed: Yes Differential Diagnosis Chest pain versus a typical chest pain versus anxiety versus CVA versus ACS versus lymphadenopathy versus hypertension versus normal exam versus cold-like symptoms Narrative Course 52-year-old male that presents to the ED for evaluation of chest discomfort as well as headache. Patient was properly examined and was found to have signs and symptoms of unclear etiology at this time. He does have risk factors for ACS and CVA although this appears to be less likely for CVA. Patient was given aspirin pain medication here as well as labs were ordered. Case will be signed out to incoming provider pending disposition and plan. Darius Chan Jul 26, 2017 13:48
[2017-07-26] MEDS ORDERED: ASPIRIN 325 MG TAB PO ONE (14:00)
--- NOTE | 2017-07-26 14:07 | RADRPT ---
EXAM DATE/TIME: 07/26/2017 13:57 [facility] COMPARISON: No previous studies available for comparison. INDICATIONS : Weakness RADIATION DOSE: 36.92 CTDIvol (mGy) MEDICAL HISTORY : Cerebrovascular disease. Hypertension. SURGICAL HISTORY : None. ENCOUNTER: Initial ACUITY: 1 day PAIN SCALE: 2/10 LOCATION: cranial TECHNIQUE: Multiple contiguous axial images were obtained of the head. Using automated exposure control and adj ustment of the mA and/or kV according to patient size, radiation dose was kept as low as reasonably a chievable to obtain optimal diagnostic quality images. DICOM format image data is available electro nically for review and comparison. FINDINGS: CEREBRUM: The ventricles are normal for age. No evidence of midline shift, mass lesion, hemorrhage or acute in farction. No extra-axial fluid collections are seen. POSTERIOR FOSSA: The cerebellum and brainstem are intact. The 4th ventricle is midline. The cerebellopontine angle i s unremarkable. EXTRACRANIAL: The visualized portion of the orbits is intact. SKULL: The calvaria is intact. No evidence of skull fracture. CONCLUSION: 1. Negative noncontrast CT brain. Jassi Abrams MD on July 26, 2017 at 14:04 Board Certified Radiologist. This report was verified electronically.
[2017-07-26] MEDS ORDERED: HYDR-3801 PO (14:45)
--- NOTE | 2017-07-26 14:56 | RADRPT ---
EXAM DATE/TIME: 07/26/2017 14:17 [facility] COMPARISON: CHEST SINGLE AP, July 22, 2017, 10:13. INDICATIONS : Chest pain. MEDICAL HISTORY : high blood pressure, TIA, mini stroke SURGICAL HISTORY : None. ENCOUNTER: Initial ACUITY: 1 day PAIN SCORE: 8/10 LOCATION: Bilateral chest FINDINGS: A single view of the chest demonstrates the lungs to be symmetrically aerated without evidence of mas s, infiltrate or effusion. The cardiomediastinal contours are unremarkable. Osseous structures are intact. CONCLUSION: No acute disease. Jaguar Sommer MD on July 26, 2017 at 14:51 Board Certified Radiologist. This report was verified electronically.
--- NOTE | 2017-07-26 15:02 | RADRPT ---
EXAM DATE/TIME: 07/26/2017 13:57 [facility] COMPARISON: No previous studies available for comparison. INDICATIONS : General weekness, tremors RADIATION DOSE: 22.91 CTDIvol (mGy) MEDICAL HISTORY : Cerebrovascular disease. Hypertension. SURGICAL HISTORY : None. ENCOUNTER: Initial ACUITY: 1 day PAIN SCALE: 2/10 LOCATION: neck TECHNIQUE: Volumetric scanning of the cervical spine was performed. Multiplanar reconstructions in the sagittal, coronal and oblique axial planes were performed. Using automated exposure control and adjustment o f the mA and/or kV according to patient size, radiation dose was kept as low as reasonably achievable to obtain optimal diagnostic quality images. DICOM format image data is available electronically f or review and comparison. FINDINGS: There is normal alignment of the vertebral bodies of the cervical spine preservation of vertebral bod y height. Moderate severity discogenic degenerative changes are present at C5-6 and C6-7 with inters pace narrowing and moderately prominent osteophytes both anterior and posterior. The posterior eleme nts are in normal alignment without evidence of locked or perched facets. The atlantoaxial articulat ion is intact. The spinous processes are intact. C2-C3: No fracture seen. The neural foramina are patent. C3-C4: No fracture seen. The neural foramina are patent. C4-C5: No fracture seen. The neural foramina are patent. C5-C6: No fracture seen. Bilateral bony neural foraminal stenosis, left greater than right. C6-C7: No fracture seen. The neural foramina are patent. C7-T1: No fracture seen. The neural foramina are patent. CONCLUSION: No evidence of compression deformity or spondylolisthesis. Jassi Abrams MD on July 26, 2017 at 14:58 Board Certified Radiologist. This report was verified electronically.
[2017-07-26] MEDS ORDERED: NITROGLYCERIN 0.4 MG SL 25 TABS/BTL SL ONE (15:30)
[2017-07-26] MEDS ORDERED: HYDROmorphone HCL PF 2 MG/ML VIAL IV PUSH ONE (16:00)
[2017-07-26 16:31] LABS: MAGNESIUM 2.2 MG/DL (1.5-2.5)
[2017-07-26 16:32] LABS: TROPONIN I LESS THAN 0.02 NG/ML (0.02-0.05)
[2017-07-26 16:42] LABS: INTERNATIONAL NORMALIZED RATIO 1.1 RATIO; PROTHROMBIN TIME - PATIENT 10.8 SEC (9.8-11.6)
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
[2017-07-26] MEDS ORDERED: SODIUM CHLORIDE 0.9% FLUSH 10 ML FLUSH IV FLUSH PRN (17:15)
[2017-07-26 17:50] VITALS: BP 147/97; PULSE 74; RESP 20; TEMP 97.4; O2SAT 98
[2017-07-26 18:23] LABS: TROPONIN I LESS THAN 0.02 NG/ML (0.02-0.05)
[2017-07-26] MEDS: HYDROmorphone HCL PF 2 MG/ML VIAL IV PUSH PRN ×2 (18:47→23:20)
[2017-07-26 20:15] VITALS: O2SAT 98
[2017-07-26 20:51] VITALS: BP 136/83; PULSE 77; RESP 18; TEMP 98.1; O2SAT 98
[2017-07-26 20:55] VITALS: PULSE 82
[2017-07-26] MEDS: SODIUM CHLORIDE 0.9% FLUSH 10 ML FLUSH IV FLUSH SCH (21:00)
[2017-07-26 21:37] LABS: TROPONIN I LESS THAN 0.02 NG/ML (0.02-0.05)
[2017-07-26 23:04] VITALS: PULSE 73
[2017-07-27 00:20] VITALS: BP 151/82; PULSE 72; RESP 18; O2SAT 94
[2017-07-27 03:03] VITALS: BP 143/93; PULSE 71; RESP 18; TEMP 98; O2SAT 96
[2017-07-27] MEDS: HYDROmorphone HCL PF 2 MG/ML VIAL IV PUSH PRN (03:46)
[2017-07-27 03:59] VITALS: PULSE 81
[2017-07-27 07:00] VITALS: PULSE 65
[2017-07-27 07:56] VITALS: BP 141/89; PULSE 70; RESP 20; TEMP 97.6; O2SAT 95
--- NOTE | 2017-07-27 08:08 | EKG ---
Date Performed: 07/26/2017 Time Performed: 20:40:58 PTAGE: 52 years EKG: Sinus rhythm WITH SINUS ARRHYTHMIA SEPTAL MYOCARDIAL INFARCTION ABNORMAL ECG PREVIOUS TRACING : 07/26/2017 18.10 Since the prior tracing, there has been no significant knutson DOCTOR: Elisa Page Interpretating Date/Time 07/28/2017 07:18:39
--- NOTE | 2017-07-27 08:08 | EKG ---
Date Performed: 07/26/2017 Time Performed: 14:32:16 PTAGE: 52 years EKG: SINUS TACHYCARDIA ABNORMAL RHYTHM ECG PREVIOUS TRACING : 07/23/2017 16.09 Since the prior tracing, there has been no significant knutson DOCTOR: Elisa Page Interpretating Date/Time 07/27/2017 08:06:05
--- NOTE | 2017-07-27 08:08 | EKG ---
Date Performed: 07/26/2017 Time Performed: 18:10:25 PTAGE: 52 years EKG: Sinus rhythm SEPTAL MYOCARDIAL INFARCTION ABNORMAL ECG PREVIOUS TRACING : 07/26/2017 14.32 Since the prior tracing, there has been no significant knutson DOCTOR: Elisa Page Interpretating Date/Time 07/27/2017 08:06:15
[2017-07-27] MEDS ORDERED: hydrALAZINE HCL 100 MG TAB PO SCH (09:00)
[2017-07-27] MEDS ORDERED: LORazepam 0.5 MG TAB PO ONE (09:45)
[2017-07-27] MEDS: SODIUM CHLORIDE 0.9% FLUSH 10 ML FLUSH IV FLUSH SCH (09:59)
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
--- NOTE | 2017-07-27 10:23 | HHI.HP ---
HPI Primary Care Physician No Primary Care Physician Chief Complaint Chest pain History of Present Illness This is a 52-year-old male that presents to ED via the back from work with complaint of chest discomfort, shortness of breath, generalized weakness, and generalized tingling. Initially thought of as new symptoms but under further discussion, patient has had these symptoms for months and has been seen at [facility] for the same symptoms. He was placed on blood pressure medicine at that time but states he had allergic reaction to the lisinopril. States that he has continued to have issues with his blood pressure medications. He cannot take the Catapres, states amlodipine caused edema in his legs. He is still taking hydralazine and seems to think that there are no issues with it but his blood pressures are still high. He describes a intermittent discomfort in his chest that happens almost every day when it occurs it lasts all day long. He can become short of breath with it. He states he becomes very weak with it. Yesterday the same thing occurred, states he sat on the couch and afterwards was too weak to move. States he has had a cardiac evaluation, states he had a stress test a couple months ago at [facility] however he does not know the results. States he has not had a cardiac catheterization. Does not follow up with PCP, states he has no insurance. Recently moved to this area from [place]. Also patient has been under a lot of stress. His son-in-law while in the . His son is in the hospital after having an injury in [place] but is about to be discharged where he can go home in [place]. He is also trying to work things out with his , currently . Review of Systems General: Patient denies fevers, chills recent, and recent travel HEENT: Patient denies headache, sore throat, difficulty swallowing. Cardiovascular: Has the chest discomfort as mentioned above. Denies sensation of heart beating rapidly or irregularly. No syncope. Denies diaphoresis. Respiratory: Intermittent shortness of breath. Denies inspirational chest discomfort. Denies coughing wheezing or hemoptysis. GI: Patient denies nausea, vomiting, diarrhea, abdominal pain, bloody stools. Musculoskeletal: Patient denies joint pain or edema. Denies calf pain or edema. Neurovascular: Complains of generalized tingling and weakness when he has the symptoms. Endocrine: Denies polyuria and polydipsia. Hematologic: Denies easy bruising. Skin: Denies rash or itching. Past Family Social History Allergies: Coded Allergies: shellfish derived (Verified Allergy, Severe, 07/26/17) Penicillins (Verified Allergy, Unknown, 07/26/17) lisinopril (Verified Adverse Reaction, Severe, ANGIOEDEMA, 07/26/17) Uncoded Allergies: PCN (Allergy, Severe, 06/08/17) Past Medical History Hypertension. Denies diabetes, hyperlipidemia, and CAD. Past Surgical History Noncontributory Reported Medications Reported Meds & Active Scripts Active Ativan (Lorazepam) 0.5 Mg Tab 0.5 Mg PO HS PRN Reported Hydralazine (Hydralazine HCl) 100 Mg Tab 100 Mg PO BID Take with meals Active Ordered Medications Current Medications Medications (Trade) Dose Ordered Sig/Oriana Route Start Time Stop Time Status Last Admin (NS Flush) 2 ml UNSCH PRN IV FLUSH 07/26/17 17:15 (NS Flush) 2 ml BID IV FLUSH 07/26/17 21:00 07/27/17 09:59 (Apresoline) 100 mg BID PO 07/27/17 09:00 07/27/17 10:00 Family History States that his father had an RI at 43. Social History Quit smoking 4 months ago prior to that he smoked 1 pack of cigarettes daily for 25 years. He has an average 2 mixed drinks with vodka daily. Denies illicit drugs. Physical Exam Vital Signs Vital Signs Date Time Temp Pulse Resp B/P (MAP) Pulse Ox O2 Delivery O2 Flow Rate FiO2 07/27/17 07:56 97.6 70 20 141/89 (106) 95 07/27/17 03:59 81 07/27/17 03:03 98.0 71 18 143/93 (110) 96 07/27/17 00:20 72 18 151/82 (105) 94 07/26/17 23:04 73 07/26/17 20:55 82 07/26/17 20:51 98.1 77 18 136/83 (100) 98 07/26/17 20:15 98 21 07/26/17 17:50 97.4 74 20 147/97 (114) 98 07/26/17 12:48 98.9 70 18 158/70 (99) 99 Physical Exam GENERAL: This is a well-nourished, well-developed patient, in no apparent distress. He appears a little anxious. Patient speaks in clear complete sentences. Patient is pleasant. HEENT: Head is atraumatic and normocephalic. Neck is supple without lymphadenopathy and trachea is midline. No JVD or carotid bruits. CARDIOVASCULAR: Regular rate and rhythm without murmurs, gallops, or rubs. RESPIRATORY: Clear to auscultation. Breath sounds equal bilaterally. No wheezes , rales, or rhonchi. Chest wall is nontender. No use of accessory muscles. GASTROINTESTINAL: Abdomen is nontender, nondistended. Abdomen soft. No obvious pulsatile mass or bruit. No CVA tenderness. Strong femoral pulses bilaterally. Normal bowel sounds in all quadrants. MUSCULOSKELETAL: Patient is moving upper and lower extremities freely. No calf tenderness or edema, no Homans sign. Strong pulses in upper and lower extremities. NEUROLOGICAL: Patient is alert and oriented. Cranial nerves 2-12 are grossly intact. No focal deficits and speech is clear. SKIN: No rash and turgor is normal. Laboratory Laboratory Tests Test 07/26/17 12:48 07/26/17 15:55 07/26/17 17:36 07/26/17 20:44 White Blood Count 9.3 Red Blood Count 4.84 Hemoglobin 16.4 Hematocrit 46.9 Mean Corpuscular Volume 96.9 Mean Corpuscular Hemoglobin 33.8 Mean Corpuscular Hemoglobin Concent 34.9 Red Cell Distribution Width 12.9 Platelet Count 223 Mean Platelet Volume 8.0 Neutrophils (%) (Auto) 64.1 Lymphocytes (%) (Auto) 18.8 Monocytes (%) (Auto) 14.6 Eosinophils (%) (Auto) 1.8 Basophils (%) (Auto) 0.7 Neutrophils # (Auto) 6.0 Lymphocytes # (Auto) 1.8 Monocytes # (Auto) 1.4 Eosinophils # (Auto) 0.2 Basophils # (Auto) 0.1 CBC Comment DIFF FINAL Differential Comment Blood Urea Nitrogen 12 Creatinine 0.79 Random Glucose 95 Total Protein 7.8 Albumin 3.3 Calcium Level 8.6 Alkaline Phosphatase 89 Aspartate Amino Transf (AST/SGOT) 98 Alanine Aminotransferase (ALT/SGPT) 124 Total Bilirubin 0.6 Sodium Level 135 Potassium Level 3.9 Chloride Level 103 Carbon Dioxide Level 24.2 Anion Gap 8 Estimat Glomerular Filtration Rate 102 Magnesium Level 2.2 Total Creatine Kinase 112 78 78 Creatine Kinase MB 1.2 Creatine Kinase MB % Troponin I LESS THAN 0.02 LESS THAN 0.02 LESS THAN 0.02 Prothrombin Time 10.8 Prothromb Time International Ratio 1.1 Activated Partial Thromboplast Time 23.2 D-Dimer Quantitative (PE/DVT) 0.27 Result Diagram: 07/26/17 1248 07/26/17 1248 Imaging Last [address] 07/26/17 1341 Signed Impressions: Service Date/Time: Wednesday, July 26, 2017 13:57 - CONCLUSION: 1. Negative noncontrast CT brain. Jassi Abrams MD Chest X-Ray 07/26/17 1341 Signed Impressions: Service Date/Time: Wednesday, July 26, 2017 14:17 - CONCLUSION: No acute disease. Jaguar Sommer MD Cervical Spine CT 07/26/17 0000 Signed Impressions: Service Date/Time: Wednesday, July 26, 2017 13:57 - CONCLUSION: No evidence of compression deformity or spondylolisthesis. Jassi Abrams MD Last [address] 07/26/17 1341 Signed Impressions: Service Date/Time: Wednesday, July 26, 2017 13:57 - CONCLUSION: 1. Negative noncontrast CT brain. Jassi Abrams MD Chest X-Ray 07/26/17 1341 Signed Impressions: Service Date/Time: Wednesday, July 26, 2017 14:17 - CONCLUSION: No acute disease. Jaguar Sommer MD Course EKG is a sinus rhythm without significant ST segment depressions or elevations. Caprini VTE Risk Assessment Caprini VTE Risk Assessment: No/Low Risk (score <= 1) Caprini Risk Assessment Model Point Value = 1 Point Value = 2 Point Value = 3 Point Value = 5 Age 41-60 Minor surgery BMI > 25 kg/m2 Swollen legs Varicose veins or History of unexplained or recurrent spontaneous Oral contraceptives or hormone replacement Sepsis (< 1 month) Serious lung disease, including pneumonia (< 1 month) Abnormal pulmonary function Acute myocardial infarction Congestive heart failure (< 1 month) History of inflammatory bowel disease Medical patient at bed rest Age 61-74 Arthroscopic surgery Major open surgery (> 45 min) Laparoscopic surgery (> 45 min) Malignancy Confined to bed (> 72 hours) Immobilizing plaster cast Central venous access Age >= 75 History of VTE Family history of VTE Factor V Leiden Prothrombin [id number] Lupus anticoagulant Anticardiolipin antibodies Elevated serum homocysteine Heparin-induced thrombocytopenia Other congenital or acquired thrombophilia Stroke (< 1 month) Elective arthroplasty Hip, pelvis, or leg fracture Acute spinal cord injury (< 1 month) Prophylaxis Regimen Total Risk Factor Score Risk Level Prophylaxis Regimen 0-1 Low Early ambulation 2 Moderate Order ONE of the following: *Sequential Compression Device (SCD) *Heparin 5000 units SQ BID 3-4 Higher Order ONE of the following medications: *Heparin 5000 units SQ TID *Enoxaparin/Lovenox 40 mg SQ daily (WT < 150 kg, CrCl > 30 mL/min) *Enoxaparin/Lovenox 30 mg SQ daily (WT < 150 kg, CrCl > 10-29 mL/min) *Enoxaparin/Lovenox 30 mg SQ BID (WT < 150 kg, CrCl > 30 mL/min) AND/OR *Sequential Compression Device (SCD) 5 or more Highest Order ONE of the following medications: *Heparin 5000 units SQ TID (Preferred with Epidurals) *Enoxaparin/Lovenox 40 mg SQ daily (WT < 150 kg, CrCl > 30 mL/min) *Enoxaparin/Lovenox 30 mg SQ daily (WT < 150 kg, CrCl > 10-29 mL/min) *Enoxaparin/Lovenox 30 mg SQ BID (WT < 150 kg, CrCl > 30 mL/min) AND *Sequential Compression Device (SCD) Assessment and Plan Assessment and Plan * Chest pain: Patient's discomfort appears atypical. May be an anxiety component. He was seen by Dr. Serrato of cardiology in the chest pain center. He has had serial cardiac enzymes and EKGs ruling out purposes. We are trying to get the records from [facility] to confirm stress test and if he had a nonischemic stress test recently he will be discharged home otherwise we will get a stress test. He will be discharged home afterwards with instructions to follow-up with PCP and should think about following up with psychiatry to help with anxiety. * Hypertension: Continue medication. Patient is stable at this time. He is agreeable to this plan. We were able to obtain the stress test from [facility]. He had a negative Lexiscan nuclear stress test 05/25/17 with an EF of 66%. This was reviewed with Dr. Serrato and with the patient. At this time he will be discharged. We will replace his prior blood pressure medication with Toprol-XL 50 mg. He should follow-up with PCP. Maximiliano Lr Jul 27, 2017 10:23
[2017-07-27 11:51] VITALS: BP 139/77; PULSE 106; RESP 22; TEMP 97.5; O2SAT 92
[2017-07-27] MEDS ORDERED: TOPR50TA PO (11:52)
--- NOTE | 2017-07-27 11:52 | HHI.DCPOC ---
Discharge Care Plan Diagnosis: (1) Chest pain (2) Hypertension Goals to Promote Your Health * To prevent worsening of your condition and complications * To maintain your health at the optimal level Directions to Meet Your Goals Take your medications as prescribed Follow your dietary instruction Follow activity as directed Keep your appointments as scheduled Take your immunizations and boosters as scheduled If your symptoms worsen call your PCP, if no PCP go to Urgent Care Center or Emergency Room Smoking is Dangerous to Your Health. Avoid second hand smoke Call the 24-hour hour crisis hotline for domestic abuse at Maximiliano Lr Jul 27, 2017 11:52
[2017-07-27] MEDS ORDERED: ACETAMINOPHEN 325 MG TAB PO ONE (12:00)
== END 2017-07-27 13:48 | disposition home or self-care (01) ==
LOC: NEPD 12:32 → NEDA 17:10 → NEPHCDU 17:45
PROVIDERS: ADMIT Internal Medicine Cardiovascular Disease; ATTEND Internal Medicine Cardiovascular Disease
DX: R07.89 Other chest pain (principal); I10 Essential (primary) hypertension; R06.02 Shortness of breath; R53.1 Weakness; R20.2 Paresthesia of skin; R25.1 Tremor, unspecified; R51 Headache; R00.0 Tachycardia, unspecified; I49.9 Cardiac arrhythmia, unspecified; R94.31 Abnormal electrocardiogram [ECG] [EKG]; E78.00 Pure hypercholesterolemia, unspecified; F41.0 Panic disorder [episodic paroxysmal anxiety]; M19.90 Unspecified osteoarthritis, unspecified site; Z86.73 Personal history of transient ischemic attack (TIA), and cerebral infarction without residual deficits; Z79.899 Other long term (current) drug therapy; Z87.891 Personal history of nicotine dependence
CPT/HCPCS: 70450; 71045; 72125; 80053; 82550; 82552; 83735; 84484; 85025; 85379; 85610; 85730; 93005; 96374; 96375; 96376; 99285; G0378; J1170; J2270; J2405

== ENCOUNTER 2017-08-15 12:31 | Emergency (ER) | payer SELFPAY ==
[~2017-08-15 12:31] MED LIST changes: -AMLO10 PO; -AMLO5TAB2 PO; -CLON0.1T PO; -DIPH25CA PO; -HYDR-3801 PO; -HYDR12.56 PO; -HYDR25TA5 PO; +TOPR50TA PO
[2017-08-15 13:04] VITALS: BP 165/120; PULSE 98; RESP 18; TEMP 98.3
[2017-08-15] MEDS ORDERED: VIST50CA PO (14:03)
[2017-08-15] MEDS ORDERED: METO1TAB9 PO (14:03)
--- NOTE | 2017-08-15 14:04 | PD ---
HPI Chief Complaint: Medication Refill Request Time Seen by Provider: 13:48 Travel History International Travel<30 days: No Contact w/Intl Traveler<30days: No Traveled to known affect area: No History of Present Illness HPI This is a 52-year-old male with history of hypertension and anxiety. He is here for medication refill of his metoprolol and Ativan. He denies any medical complaint. He reports he was unable to establish with a primary due to lack of insurance. [facility] Past Medical History Arthritis: Yes Cardiovascular Problems: Yes Cerebrovascular Accident: Yes (2014) Diminished Hearing: No Hypertension: Yes Past Surgical History Oral Surgery: Yes Thoracic Surgery: Yes Social History Alcohol Use: Yes (rare) Tobacco Use: No Substance Use: No Allergies-Medications (Allergen,Severity, Reaction): Coded Allergies: shellfish derived (Verified Allergy, Severe, 07/26/17) Penicillins (Verified Allergy, Unknown, 07/26/17) lisinopril (Verified Adverse Reaction, Severe, ANGIOEDEMA, 07/26/17) Uncoded Allergies: PCN (Allergy, Severe, 06/08/17) Reported Meds & Prescriptions Reported Meds & Active Scripts Active Toprol XL (Metoprolol Succinate) 50 Mg Tab 50 Mg PO DAILY Ativan (Lorazepam) 0.5 Mg Tab 0.5 Mg PO HS PRN Review of Systems Except as stated in HPI: all other systems reviewed are Neg General / Constitutional: No: Fever Eyes: No: Visual changes HENT: No: Headaches Cardiovascular: No: Chest Pain or Discomfort Respiratory: No: Shortness of Breath Gastrointestinal: No: Abdominal Pain Genitourinary: No: Dysuria Musculoskeletal: No: Pain Skin: No Rash Neurologic: No: Weakness Psychiatric: No: Depression Physical Exam Narrative GENERAL: Alert well-appearing 52-year-old male. SKIN: Warm and dry. HEAD: Normocephalic. EYES: No injection or drainage. NECK: Supple CARDIOVASCULAR: Regular rate and rhythm RESPIRATORY: Breath sounds equal bilaterally. No accessory muscle use. PSYCHIATRIC: No delusional thought processes. No hallucinations. Data Data Last Documented VS Vital Signs Date Time Temp Pulse Resp B/P (MAP) Pulse Ox O2 Delivery O2 Flow Rate FiO2 08/15/17 13:04 98.3 98 18 165/120 (135) MDM Medical Decision Making Medical Screen Exam Complete: Yes Emergency Medical Condition: Yes Differential Diagnosis Medication refill, history of anxiety, history of hypertension Narrative Course This is a resident 52-year-old male here for medication refill of his metoprolol and Ativan. He has no medical complaints. It was discussed at length about resources in the area for the uninsured to manage his blood pressure and anxiety medications. He will be referred to [facility] and [facility]. He will be given a refill of his metoprolol and a prescription for Vistaril. Diagnosis Primary Impression: Medication refill Referrals: [facility] (Out patient) [facility] Additional Instructions: Follow-up with [facility] for your blood pressure medication. [facility]. Return to the emergency department if he developed new or worsening symptoms Scripts Hydroxyzine Pamoate (Vistaril) 50 Mg Cap 50 MG PO TID Y for ANXIETY, #30 CAP 0 Refills Prov: Hui Mayorga 08/15/17 Metoprolol Succinate ER 24 HR (Metoprolol Succinate ER 24 HR) 50 Mg Tab 50 MG PO DAILY, #30 TAB 0 Refills Prov: Hui Mayorga 08/15/17 Disposition: 01 DISCHARGE HOME Condition: Stable Hui Mayorga Aug 15, 2017 14:04
== END 2017-08-15 14:18 | disposition home or self-care (01) ==
LOC: NEPK 12:31
DX: I10 Essential (primary) hypertension (principal); F41.9 Anxiety disorder, unspecified; Z76.0 Encounter for issue of repeat prescription
CPT/HCPCS: 99281